=== PATIENT | female | born 1975 | race Caucasian/White ===

== ENCOUNTER → 2017-02-23 | Outpatient (CLI) | payer BC ==
--- NOTE | 2017-02-23 13:56 | MM ---
Reason for exam: screening (asymptomatic). Last mammogram was performed 2 years ago. Physical Findings: A clinical breast exam by your physician is recommended on an annual basis and results should be correlated with mammographic findings. MG 3D Screening Mammo W/Cad Bilateral CC and MLO view(s) were taken. Prior study comparison: February 26, 2015, mammogram, performed at [facility]. August 28, 2011, mammogram, performed at [facility]. The breast tissue is extremely dense which could obscure a lesion on mammography. There is no discrete abnormality. ASSESSMENT: Negative, BI-RAD 1 RECOMMENDATION: Routine screening mammogram of both breasts in 1 year.
== END | disposition home or self-care (01) ==
LOC: RADMAMWWP 08:27
PROVIDERS: ATTEND Family Medicine
DX: Z12.31 Encounter for screening mammogram for malignant neoplasm of breast (principal)
CPT/HCPCS: 77063; G0202

== ENCOUNTER → 2018-09-28 | Outpatient (CLI) | payer BC ==
--- NOTE | 2018-09-29 11:25 | MM ---
Reason for exam: screening (asymptomatic). Last mammogram was performed 1 year and 7 months ago. Physical Findings: A clinical breast exam by your physician is recommended on an annual basis and results should be correlated with mammographic findings. MG 3D Screening Mammo W/Cad Bilateral CC and MLO view(s) were taken. Prior study comparison: February 23, 2017, bilateral MG 3d screening mammo w/cad. February 26, 2015, mammogram, performed at [facility]. The breast tissue is heterogeneously dense. This may lower the sensitivity of mammography. No significant changes when compared with prior studies. ASSESSMENT: Negative, BI-RAD 1 RECOMMENDATION: Routine screening mammogram of both breasts in 1 year. Patient should continue monthly self breast exams. A negative report should not preclude additional follow up of suspicious palpable abnormalities.
== END | disposition home or self-care (01) ==
LOC: RADMAMWWP 16:19
PROVIDERS: ATTEND Family Medicine
DX: Z12.31 Encounter for screening mammogram for malignant neoplasm of breast (principal)
CPT/HCPCS: 77063; 77067

== ENCOUNTER → 2020-08-27 | Outpatient (CLI) | payer BC ==
--- NOTE | 2020-08-29 08:33 | MM ---
Reason for exam: screening (asymptomatic). Last mammogram was performed 1 year and 11 months ago. Physical Findings: A clinical breast exam by your physician is recommended on an annual basis and results should be correlated with mammographic findings. MG 3D Screening Mammo W/Cad Bilateral CC and MLO view(s) were taken. Prior study comparison: September 28, 2018, bilateral MG 3d screening mammo w/cad. February 23, 2017, bilateral MG 3d screening mammo w/cad. The breast tissue is extremely dense which could obscure a lesion on mammography. No significant changes when compared with prior studies. ASSESSMENT: Benign, BI-RAD 2 RECOMMENDATION: Routine screening mammogram of both breasts in 1 year.
== END | disposition home or self-care (01) ==
LOC: RADMAMWWP 13:41
PROVIDERS: ATTEND Family Medicine
DX: Z12.31 Encounter for screening mammogram for malignant neoplasm of breast (principal)
CPT/HCPCS: 77063; 77067

== ENCOUNTER → 2021-12-31 | Outpatient (CLI) | payer BC ==
--- NOTE | 2022-01-01 14:45 | MM ---
Reason for Exam: Screening (asymptomatic). Last mammogram was performed 1 year(s) and 4 month(s) ago. Patient History: Menarche at age 13. First Full-Term at age 28. Risk Values: Luda 5 year model risk: 0.9%. NCI Lifetime model risk: 10.5%. Prior Study Comparison: 02/23/2017 Bilateral Screening Mammogram, [facility]. 09/28/2018 Bilateral Screening Mammogram, [facility]. 08/27/2020 Bilateral Screening Mammogram, [facility]. Tissue Density: The breast tissue is heterogeneously dense. This may lower the sensitivity of mammography. Findings: Analyzed By CAD. No suspicious groups of microcalcifications, spiculated or lobular masses, architectural distortion or other secondary signs of malignancy are mammographically apparent. Overall Assessment: Negative, BI-RAD 1 Management: Screening Mammogram of both breasts in 1 year. A negative mammogram report should not preclude additional follow up of suspicious palpable abnormalities. Patient should continue monthly self breast exam. A clinical breast exam by your physician is recommended on an annual basis and results should be correlated with mammographic findings. Electronically signed and approved by: Saran Bishop D.O. Radiologis
== END | disposition home or self-care (01) ==
LOC: RADMAMWWP 07:20
PROVIDERS: ATTEND Family Medicine
DX: Z12.31 Encounter for screening mammogram for malignant neoplasm of breast (principal)
CPT/HCPCS: 77063; 77067

== ENCOUNTER → 2022-09-08 | Outpatient (CLI) | payer BC ==
--- NOTE | 2022-09-08 14:32 | CT ---
EXAMINATION TYPE: CT abdomen wo con CT DLP: 180.1 mGycm, Automated exposure control for dose reduction was used. DATE OF EXAM: 09/08/2022 2:23 PM COMPARISON: None CLINICAL INDICATION:Female, 46 years old with history of R10.13 epigastric pain; epigastric pain TECHNIQUE: Standard CT of the abdomen without IV or oral contrast. Lack of IV or oral contrast limi ts evaluation of solid and hollow organ viscera. Coronal and sagittal reformats were performed. FINDINGS: LOWER CHEST: Unremarkable ABDOMEN LIVER: Subcentimeter hypodensity within the right hepatic lobe which is too small to characterize but likely represents a cyst. GALLBLADDER AND BILE DUCTS: Unremarkable. PANCREAS: Unremarkable noncontrast appearance. SPLEEN: Unremarkable noncontrast appearance. ADRENAL GLANDS: Unremarkable noncontrast appearance. KIDNEYS AND URETERS: No evidence of hydronephrosis or renal calculus. STOMACH AND BOWEL: Stomach and duodenum are unremarkable. Enteric contrast reaches the mid small elvia l. No focal wall thickening or surrounding inflammatory changes. No evidence of bowel obstruction. PERITONEUM: No evidence of pneumoperitoneum or free fluid. VASCULATURE: No evidence of aortic aneurysm. MUSCULOSKELETAL: No acute osseous abnormalities. Levocurvature of the lumbar spine. Grade 1 anterolis thesis of L4 on L5 without pars defects. Multilevel facet arthropathy. No aggressive osseous lesion. Degenerative disc disease at L5-S1. LYMPH NODES: No gross evidence for lymphadenopathy. SOFT TISSUE/ABDOMINAL WALL: Small fat filled umbilical hernia. IMPRESSION: 1. No acute abdominal process. 2. Grade 1 anterolisthesis of L4 on L5 without pars defects.
== END | disposition home or self-care (01) ==
LOC: RADCTMAIN 13:40
PROVIDERS: ATTEND Family Medicine
DX: M43.16 Spondylolisthesis, lumbar region (principal); R10.13 Epigastric pain; R19.7 Diarrhea, unspecified
CPT/HCPCS: 74150

== ENCOUNTER → 2023-03-10 | Outpatient (CLI) | payer BC ==
--- NOTE | 2023-03-10 08:29 | MM ---
Reason for Exam: Screening (asymptomatic). Last mammogram was performed 1 year(s) and 2 month(s) ago. Patient History: Menarche at age 13. First Full-Term at age 28. Patient has history of breast feeding. Last menstrual period: 12/09/2012 Risk Values: Luda 5 year model risk: 1.0%. NCI Lifetime model risk: 10.3%. Prior Study Comparison: 09/28/2018 Bilateral Screening Mammogram, [facility]. 08/27/2020 Bilateral Screening Mammogram, [facility]. 12/31/2021 Bilateral MG 3D screening mammo w/cad, [facility]. Tissue Density: The breast tissue is extremely dense which could obscure a lesion on mammography. Findings: Analyzed By CAD. Pattern appears symmetrical. Multiple new punctate heterogenous calcifications are in the upper outer quadrant right breast. This is an interval change. Additional workup with magnification views are recommended.Pattern appears symmetrical. There is an ill-defined area of increased density within the medial left cranial caudal view. This has indistinct borders. Additional workup with a compression view is recommended. Multiple new punctate heterogenous calcifications are in the upper outer quadrant right breast. This is an interval change. Additional workup with magnification views are recommended. Overall Assessment: Incomplete: need additional imaging evaluation, BI-RAD 0 Management: Diagnostic Mammogram of both breasts. A negative mammogram report should not preclude additional follow up of suspicious palpable abnormalities. Patient should continue monthly self breast exam. A clinical breast exam by your physician is recommended on an annual basis and results should be correlated with mammographic findings. Electronically signed and approved by: Saran Bishop D.O. Radiologis
--- NOTE | 2023-03-10 08:42 | MM ---
Reason for Exam: Additional evaluation requested from abnormal screening. Last mammogram was performed 1 year(s) and 2 month(s) ago. Indicated Problems: Bloody discharge of the right side. Patient History: Menarche at age 13. First Full-Term at age 28. Patient has history of breast feeding. Risk Values: Luda 5 year model risk: 1.0%. NCI Lifetime model risk: 10.3%. Prior Study Comparison: 08/27/2020 Bilateral Screening Mammogram, [facility]. 12/31/2021 Bilateral MG 3D screening mammo w/cad, [facility]. Tissue Density: The breast tissue is extremely dense which could obscure a lesion on mammography. Findings: Analyzed By CAD. Multiple persistent heterogenous punctate calcifications are in the upper outer quadrant right breast. This is an interval change. These are suggestive of malignancy. Sampling is recommended. Under compression the area of increased density within the inferior medial left breast disperses on compression. Persistent abnormality on the rolled views is not evident. Precautionary follow up left breast mammogram in 6 months is recommended. Overall Assessment: Highly suggestive of malignancy, BI-RAD 5 Management: Stereotactic Core Biopsy of the right breast. Surgical Consultation of the right breast. A negative mammogram report should not preclude additional follow up of suspicious palpable abnormalities. Patient should continue monthly self breast exam. A clinical breast exam by your physician is recommended on an annual basis and results should be correlated with mammographic findings. Electronically signed and approved by: Saran Bishop D.O. Radiologis
== END | disposition home or self-care (01) ==
LOC: RADMAMWWP 07:41
PROVIDERS: ATTEND Family Medicine
DX: Z12.31 Encounter for screening mammogram for malignant neoplasm of breast (principal); R92.1 Mammographic calcification found on diagnostic imaging of breast; R92.333 Mammographic heterogeneous density, bilateral breasts
CPT/HCPCS: 77062; 77063; 77066; 77067

== ENCOUNTER → 2023-03-23 | Day surgery (SDC) | payer BC ==
--- NOTE | 2023-03-26 11:22 | MM ---
Risk Values: Luda 5 year model risk: 1.0%. NCI Lifetime model risk: 10.3%. Prior Study Comparison: 12/31/2021 Bilateral MG 3D screening mammo w/cad, [facility]. 03/10/2023 Bilateral MG 3D work up w/cad JAIMEE, H. 03/10/2023 Bilateral MG 3D screening mammo w/cad, [facility]. Pathology Description: Approach: CC FA Needle Type: Eviva Cores: 12 Skin Nicks: 1 Gauge: 9 pt almost passed out The procedure of stereotactic guided core biopsy was explained to the patient. Benefits, alternatives, and risks were discussed. An informed consent was then obtained. The shortness pathway for anterior margin of the calcified lesions in the posterior right breast. Shortness pathway was superior approach. A vacuum assisted biopsy gun was used to obtain multiple core samples. The patient tolerated the procedure well without any immediate complication. The patient was kept in the radiology department for short stay after the procedure and then discharged home in stable condition. Targeted calcifications were identified in specimen mammogram. Patient had an episode of vasovagal syncope and was urgently taken off the biopsy chair. Post biopsy mammogram shows the clip to appear in satisfactory position relative to the targeted area of concern on the preprocedure images. Impression: SUCCESSFUL, COMPLICATED STEREOTACTIC GUIDED CORE BIOPSY OF AREA OF CONCERN IN THE POSTERIOR LATERAL RIGHT BREAST. FEW SCANT CALCIFICATIONS ARE PRESENT. PATIENT HAD AN EPISODE OF VASOVAGAL SYNCOPE AND WAS URGENTLY TAKEN OFF THE BIOPSY CHAIR. Pathology Description: Approach: CC FA Needle Type: Eviva Cores: 12 Skin Nicks: 1 Gauge: 9 pt almost passed out The procedure of stereotactic guided core biopsy was explained to the patient. Benefits, alternatives, and risks were discussed. An informed consent was then obtained. The shortness pathway for anterior margin of the calcified lesions in the right breast. Shortness pathway was superior approach. A vacuum assisted biopsy gun was used to obtain multiple core samples. The patient tolerated the procedure well without any immediate complication. The patient was kept in the radiology department for short stay after the procedure and then discharged home in stable condition. Minimal calcifications are identified in specimen mammogram. Patient had an episode of vasovagal syncope and was urgently taken off the biopsy chair. Post biopsy mammogram shows the clip to appear in satisfactory position relative to the targeted area of concern on the preprocedure images. Impression: Minimally COMPLICATED STEREOTACTIC GUIDED CORE BIOPSY OF AREA OF CONCERN IN THE ANTERIOR RIGHT BREAST. FEW SCANT CALCIFICATIONS ARE PRESENT. Patient had an episode of vasovagal syncope and was urgently taken off the biopsy chair. No second attempt was attempted at this location. The procedure of stereotactic guided core biopsy was explained to the patient. Benefits, alternatives, and risks were discussed. An informed consent was then obtained. The shortness pathway for anterior margin of the calcified lesions in the right breast. Shortness pathway was superior approach. A vacuum assisted biopsy gun was used to obtain multiple core samples. The patient tolerated the procedure well without any immediate complication. The patient was kept in the radiology department for short stay after the procedure and then discharged home in stable condition. Minimal calcifications are identified in specimen mammogram. Patient had an episode of vasovagal syncope and was urgently taken off the biopsy chair. Post biopsy mammogram shows the clip to appear in satisfactory position relative to the targeted area of concern on the preprocedure images. Impression: Minimally COMPLICATED STEREOTACTIC GUIDED CORE BIOPSY OF AREA OF CONCERN IN THE ANTERIOR LATERAL RIGHT BREAST. FEW SCANT CALCIFICATIONS ARE PRESENT. Patient had an episode of vasovagal syncope and was urgently taken off the biopsy chair. No second attempt was attempted at this location. The procedure of stereotactic guided core biopsy was explained to the patient. Benefits, alternatives, and risks were discussed. An informed consent was then obtained. The shortness pathway for anterior margin of the calcified lesions in the right breast. Shortness pathway was superior approach. A vacuum assisted biopsy gun was used to obtain multiple core samples. Minimal calcifications are identified in specimen mammogram. Patient had an episode of vasovagal syncope and was urgently taken off the biopsy chair. Post biopsy mammogram shows the clip to appear in satisfactory position relative to the targeted area of concern on the preprocedure images. No second attempt was taken secondary to the syncope. Attention was then taken to the posterior lateral right breast to the posterior margin of the suspicious calcifications. Shortness pathway was superior approach. A vacuum assisted biopsy gun was used to obtain multiple core samples. Patient had an episode of vasovagal syncope and was urgently taken off the biopsy chair. Targeted calcifications were identified in specimen mammogram. The patient was kept in the radiology department for short stay after the procedure and then discharged home in stable condition. Post biopsy mammogram shows the clip to appear in satisfactory position relative to the targeted area of concern on the preprocedure images. Impression: MINIMALLY COMPLICATED STEREOTACTIC GUIDED CORE BIOPSY OF AREA OF CONCERN IN THE LATERAL RIGHT BREAST. FEW SCANT CALCIFICATIONS ARE PRESENT ON INITIAL ANTERIOR BIOPSY WHILE THE POSTERIOR BIOPSY DEMONSTRATED SATISFACTORY CALCIFICATIONS. PATIENT HAD AN EPISODE OF VASOVAGAL SYNCOPE ON BOTH THE ANTERIOR POSTERIOR BIOPSIES AND WAS URGENTLY TAKEN OFF THE BIOPSY CHAIR AFTER OBTAINING SAMPLES. NO SECOND ATTEMPT WAS ATTEMPTED AT THE ANTERIOR LOCATION. POSTERIOR LOCATION APPEARS SATISFACTORY. Pathology Results: Result: Malignant, Ductal carcinoma in situ, comedo type. A. 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 B. 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 Overall Assessment: Malignant Management: Surgical Consultation of the right breast. Electronically signed and approved by: Karthik Engle DO
== END | disposition home or self-care (01) ==
LOC: RADMAMWWP 07:37
PROVIDERS: ATTEND Surgery
DX: D05.11 Intraductal carcinoma in situ of right breast (principal)
CPT/HCPCS: 88305; 88342; 88341; 19081; 19082; A4648

== ENCOUNTER 2023-04-22 10:31 | Day surgery (SDC) | payer BC ==
[~2023-04-22 10:31] MED LIST: LACTATED RINGERS 1,000 ML IV SCH; LIDOCAINE 1% (10MG/ML) FOR IV START INTRADERMA PRN
[2023-04-22 12:07] VITALS: TEMP 97.9
[2023-04-22] MEDS ORDERED: PROPOFOL 10 MG/ML 20 ML VIAL IV ONE (12:24)
--- NOTE | 2023-04-22 12:37 | P.PCN ---
Date of Procedure: 04/22/23 Procedure(s) Performed: BRIEF HISTORY: Patient is a 47-year-old pleasant white female scheduled for an elective colonoscopy as a part of evaluation of chronic diarrhea for the last several years duration. PROCEDURE PERFORMED: Colonoscopy with random biopsy. PREOPERATIVE DIAGNOSIS: Chronic intermittent diarrhea. IV sedation per Anesthesia. PROCEDURE: After informed consent was obtained, the patient, was brought into the endoscopy unit. IV sedation was administered by Anesthesia under continuous monitoring. Digital rectal examination was normal. Initially the Olympus CF-160 flexible video colonoscope was then inserted in the rectum, gradually advanced into the cecum without any difficulty. Careful examination was performed as the scope was gradually being withdrawn. Ileocecal valve and the appendiceal orifice were visualized and appeared normal. Prep was excellent. Mucosa of the cecum, ascending colon, transverse colon, descending colon, sigmoid colon, and rectum appeared normal. Random biopsies were done from ascending and descending colon to rule out microscopic/collagenous colitis. Retroflexion was performed in the rectum and small internal hemorrhoids were seen. The patient tolerated the procedure well. IMPRESSION: Normal-appearing colon from rectum to cecum with no evidence of colitis or colorectal neoplasia . Small internal hemorrhoids. RECOMMENDATIONS: Findings of this examination were discussed with the patient as well as a family. She was advised to follow with the biopsy results and she'll be seen in office in 3-4 weeks.. Recommended repeat screening colonoscopy in 10 years
[2023-04-22 13:09] VITALS: BP 119/76; PULSE 71; RESP 16
== END 2023-04-22 13:15 | disposition home or self-care (01) ==
LOC: ORWHC2ENDO 10:31
PROVIDERS: ATTEND Internal Medicine Gastroenterology
DX: K64.8 Other hemorrhoids (principal); M79.7 Fibromyalgia; F41.9 Anxiety disorder, unspecified; Z85.3 Personal history of malignant neoplasm of breast; Z79.899 Other long term (current) drug therapy; Z79.1 Long term (current) use of non-steroidal anti-inflammatories (NSAID)
CPT/HCPCS: 81025; 88305; 45380; J2704

== ENCOUNTER → 2023-06-09 | Outpatient (CLI) | payer BC ==
--- NOTE | 2023-06-09 17:20 | CA ---
Transthoracic Echo Report Name: Marguerite Cee Age: 47 Gender: F : 1975 Exam Date: 06/09/2023 11:20 Exam Location: [facility] Ht (in): 67 Wt (lb): 145 Ordering Physician: Lon Lockhart MD Attending/Referring Phys: Client Services Manager Nettie Robertson [facility] Procedure CPT: Indications: Z01.818 Pre-chemo Cardiac Hx: Technical Quality: Fair Contrast 1: Total Dose (mL): Contrast 2: Total Dose (mL): MEASUREMENTS (Male / Female) Normal Values 2D ECHO LV Diastolic Diameter PLAX 3.6 cm 4.2 - 5.9 / 3.9 - 5.3 cm LV Systolic Diameter PLAX 2.7 cm IVS Diastolic Thickness 0.8 cm 0.6 - 1.0 / 0.6 - 0.9 cm LVPW Diastolic Thickness 0.9 cm 0.6 - 1.0 / 0.6 - 0.9 cm LV Relative Wall Thickness 0.5 LVOT Diameter 2.0 cm LV Diastolic Volume MOD BP 61.6 cm??? 67 - 155 / 56 - 104 cm??? LV Systolic Volume MOD BP 27.3 cm??? 22 - 58 / 19 - 49 cm??? LV Ejection Fraction MOD BP 55.7 % >= 55 % LV Cardiac Index MOD BP 1515.1 cm???/min???m??? LV Diastolic Volume MOD 4C 67.5 cm??? LV Systolic Volume MOD 4C 30.0 cm??? LV Ejection Fraction MOD 4C 55.6 % LV Cardiac Index MOD 4C 1658.6 cm???/min???m??? LV Diastolic Length 4C 9.0 cm LV Systolic Length 4C 7.5 cm LV Diastolic Volume MOD 2C 53.2 cm??? LV Systolic Volume MOD 2C 24.9 cm??? LV Ejection Fraction MOD 2C 53.1 % LV Cardiac Index MOD 2C 1249.7 cm???/min???m??? LV Diastolic Length 2C 8.5 cm LV Systolic Length 2C 7.5 cm M-MODE Aortic Root Diameter MM 2.2 cm LA Systolic Diameter MM 2.8 cm LA Ao Ratio MM 1.3 AV Cusp Separation MM 1.8 cm DOPPLER AV Peak Velocity 118.3 cm/s AV Peak Gradient 5.6 mmHg AV Mean Velocity 91.6 cm/s AV Mean Gradient 3.6 mmHg AV Velocity Time Integral 25.4 cm LVOT Peak Velocity 89.3 cm/s LVOT Peak Gradient 3.2 mmHg LVOT Velocity Time Integral 19.3 cm LVOT Stroke Volume 59.8 cm??? LVOT Stroke Volume Index 33.9 ml/m??? LVOT Cardiac Index 2638.9 cm???/min???m??? AV Area Cont Eq vti 2.4 cm??? AV Area Cont Eq pk 2.3 cm??? Mitral E Point Velocity 68.3 cm/s Mitral A Point Velocity 64.7 cm/s Mitral E to A Ratio 1.1 MV Deceleration Time 181.5 ms LV E' Lateral Velocity 14.9 cm/s Mitral E to LV E' Lateral Ratio 4.6 LV E' Septal Velocity 12.1 cm/s Mitral E to LV E' Septal Ratio 5.6 TR Peak Velocity 198.2 cm/s TR Peak Gradient 15.7 mmHg Right Atrial Pressure 15.0 mmHg Pulmonary Artery Systolic Pressu 30.7 mmHg Right Ventricular Systolic Press 30.7 mmHg FINDINGS Left Ventricle Left ventricular wall thickness normal. Left ventricular cavity size normal. Low normal left ventricular systolic function with no obvious regional wall motion abnormalities. Left ventricular ejection fraction is estimated at 50- 55%. Right Ventricle Normal right ventricular size. Mild pulmonary hypertension. Right Atrium Normal right atrial size. Left Atrium Normal left atrial size. Mitral Valve Mitral valve thickened. No mitral regurgitation. Aortic Valve Aortic valve not well visualized. No aortic valve stenosis or regurgitation. Tricuspid Valve Structurally normal tricuspid valve. Trace tricuspid regurgitation. Pulmonic Valve Pulmonic valve not well visualized. Pericardium No pericardial effusion. Aorta Normal size aortic root. CONCLUSIONS Normal LV size and systolic function ejection fraction 55% Previewed by: Dr. Denys Wolff MD (Electronically Signed) Final Date: 09 June 2023 17:19
== END | disposition home or self-care (01) ==
LOC: RADECHMAIN 10:48
PROVIDERS: ATTEND Internal Medicine Hematology & Oncology
DX: Z01.818 Encounter for other preprocedural examination (principal)
CPT/HCPCS: 93306

== ENCOUNTER 2023-06-19 07:26 | Day surgery (SDC) | payer BC ==
[2023-06-09 11:51] VITALS: BMI 22.7
[~2023-06-19 07:26] MED LIST changes: +ACETAMINOPHEN TAB 500 MG TAB PO PRN; +HEPARIN SODIUM,PORCINE 5,000 UNIT/ML 1 ML VIAL SQ PRN; +HYDROmorphone 0.5 MG/0.5 ML SYRINGE IVP PRN; +MIDAZOLAM 2 MG/2 ML VIAL IV PRN; +Pre Op ABX Message 1 EACH MISC MISCELLANE ONE
[2023-06-19] MEDS ORDERED: METOCLOPRAMIDE 5 MG/ML 2 ML VIAL ONE (08:27)
[2023-06-19] MEDS ORDERED: ONDANSETRON 4 MG/2 ML VIAL ONE (08:27)
[2023-06-19] MEDS ORDERED: DEXAMETHASONE SOD PHOSPHATE 4 MG/ML 1 ML VIAL IVP ONE (08:30)
[2023-06-19 08:40] VITALS: RESP 16
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
[2023-06-19] MEDS ORDERED: ceFAZolin 1,000 MG VIAL ONE (08:52)
[2023-06-19] MEDS ORDERED: MIDAZOLAM 2 MG/2 ML VIAL ONE (08:52)
[2023-06-19] MEDS ORDERED: PROPOFOL 10 MG/ML 20 ML VIAL IV ONE (08:52)
[2023-06-19] MEDS ORDERED: LIDOCAINE 1% INJ 10MG/ML (20 ML MDV) ONE (08:52)
[2023-06-19] MEDS ORDERED: SODIUM CHLORIDE 0.9% 100 ML BAG ONE (08:52)
[2023-06-19] MEDS ORDERED: PHENYLEPHRINE 10 MG/ML VIAL ONE (08:52)
[2023-06-19] MEDS ORDERED: fentaNYL (PF) 50 MCG/ML 2 ML AMP ONE (08:52)
[2023-06-19] MEDS ORDERED: HEPARIN SODIUM,PORCINE 100 UNIT/ML 5 ML VIAL IV ONE ×2 (08:56→09:37)
[2023-06-19] MEDS ORDERED: LIDOCAINE (PF) 10 MG/ML 2 ML VIAL SQ ONE ×2 (08:57→09:37)
[2023-06-19] MEDS ORDERED: SODIUM CHLORIDE 0.9% 100 ML with ceFAZolin 2,000 MG IV ONE ×2 (09:18)
[2023-06-19] MEDS ORDERED: ACETAMINOPHEN TAB 325 MG TAB PO PRN (09:55)
[2023-06-19] MEDS ORDERED: NALOXONE 0.4 MG/ML 1 ML VIAL IV PRN (09:55)
--- NOTE | 2023-06-19 09:57 | P.OP ---
Date of Procedure: 06/19/23 Procedure(s) Performed: PREOPERATIVE DIAGNOSIS: Right breast cancer POSTOPERATIVE DIAGNOSIS: Same PROCEDURE: Port-A-Cath placement with fluoroscopic and ultrasound guidance SURGEON: Elly EBL: Minimal ANESTHESIA: General COMPLICATIONS: None OPERATIVE PROCEDURE: Patient was brought and placed on the operative table in the supine position. The patient was placed under general anesthesia at that time. The chest and neck were prepped and draped in usual sterile fashion. The ultrasound probe was used to identify the location of the left internal jugular vein. The skin was localized with lidocaine. The Seldinger needle was advanced into the IJ under ultrasound guidance. The wire was advanced through the needle under fluoroscopic guidance into the superior vena cava. A port pocket was created in the left infraclavicular location. The catheter was tunneled from the wire entrance site to the port pocket. The port was then connected to the catheter. The dilator introducer was threaded over the guidewire. The guidewire and dilator were then removed. The catheter was advanced through the introducer and introducer was then removed. The tip was seen to be in the right atrial junction via fluoroscopy. A picture of the radiograph showing the tip of the catheter was taken. Port was flushed with both saline and a Hep-Lock solution. There was good flow both in and out of the port. The port was sutured in underlying tissues using 3-0 silk sutures. The subcutaneous tissues were reapproximated using 3-0 Vicryl sutures and the skin at both locations using 4-0 Monocryl sutures. Skin glue and sterile dressings then applied. DISPOSITION: Stable to recovery room
[2023-06-19 10:27] VITALS: TEMP 97.5
--- NOTE | 2023-06-19 11:05 | XR ---
EXAMINATION TYPE: XR chest 1V confirm line [facility] DATE OF EXAM: 06/19/2023 10:56 AM CLINICAL INDICATION:Female, 47 years old with history of Check Line; COMPARISON: Chest radiographs from TECHNIQUE: XR chest 1V confirm line [facility] Frontal view of the chest. FINDINGS: Lungs/Pleura: There is no evidence of pleural effusion, focal consolidation, or pneumothorax. Pulmonary vascularity: Unremarkable. Heart/mediastinum: Cardiomediastinal silhouette is unremarkable. Musculoskeletal: No acute osseous pathology. Other findings: None Lines/Tubes: [id number]-h-[id number] projecting over the left hemithorax with distal tip at the cavoatrial junction. IMPRESSION: No acute cardiopulmonary disease/process.
[2023-06-19 11:47] VITALS: BP 121/78; PULSE 78
--- NOTE | 2023-06-19 12:17 | FL ---
EXAMINATION TYPE: FL guided central line placement DATE OF EXAM: 06/19/2023 FLUOROSCOPY Fluoroscopy time of 10 seconds was used during Port-A-Cath placement. 1 image/s document/s parish dial. DAP: .2315 Gycm2
== END 2023-06-19 12:02 | disposition home or self-care (01) ==
LOC: OR 07:26
PROVIDERS: ATTEND Surgery
DX: C50.911 Malignant neoplasm of unspecified site of right female breast (principal); F41.9 Anxiety disorder, unspecified; K58.9 Irritable bowel syndrome, unspecified; Z90.13 Acquired absence of bilateral breasts and nipples; Z85.3 Personal history of malignant neoplasm of breast; Z87.891 Personal history of nicotine dependence; Z98.890 Other specified postprocedural states; Z79.899 Other long term (current) drug therapy; Z91.048 Other nonmedicinal substance allergy status; Z91.011 Allergy to milk products
CPT/HCPCS: 36561; 81025; 77001; C1788; J2250; J2001 ×2; J1644; J1642; J1100; J2765; J2405; J0690; J3010; J2704; J2371

== ENCOUNTER → 2024-10-31 | Day surgery (SDC) | payer BC ==
[~2024-10-31] MED LIST changes: -ACETAMINOPHEN TAB 500 MG TAB PO PRN; -HEPARIN SODIUM,PORCINE 5,000 UNIT/ML 1 ML VIAL SQ PRN; -HYDROmorphone 0.5 MG/0.5 ML SYRINGE IVP PRN; +LIDOCAINE 1% INJ 10MG/ML (20 ML MDV) ONE; -MIDAZOLAM 2 MG/2 ML VIAL IV PRN; +ONDANSETRON 4 MG/2 ML VIAL IVP PRN; +ONDANSETRON 4 MG/2 ML VIAL ONE; +PROPOFOL 10 MG/ML 20 ML VIAL IV ONE; -Pre Op ABX Message 1 EACH MISC MISCELLANE ONE; +fentaNYL (PF) 50 MCG/ML 2 ML AMP IV PRN
[2024-10-31 07:18] VITALS: RESP 16; TEMP 97.6
[2024-10-31] MEDS: LACTATED RINGERS 1,000 ML IV ONE (07:18)
[2024-10-31 08:06] LABS: Basophils # (A) 0.02 10*3/uL (0.00-0.10); Basophils % (A) 0.5 %; HCT 40.9 % (37.2-46.3); HGB 13.7 g/dL (12.0-15.0); Lymphocytes # (A) 1.12 10*3/uL (0.90-5.00); Lymphocytes % (A) 30.2 %; MCH 34.3 pg (27.0-32.0); MCHC 33.5 g/dL (32.0-37.0); MCV 102.3 fL (80.0-97.0); Monocytes # (A) 0.46 10*3/uL (0.20-1.00); Monocytes % (A) 12.4 %; Neutrophils # (A) 2.11 10*3/uL (1.80-7.70); Neutrophils % (A) 56.9 %; Platelet Count 179 10*3/uL (140-440); WBC 3.71 10*3/uL (4.50-10.00)
[2024-10-31 08:18] VITALS: PULSE 69
[2024-10-31 08:35] VITALS: BP 105/64
--- NOTE | 2024-10-31 08:56 | OP ---
OPERATIVE REPORT DATE OF SERVICE : 10/31/2024 PROCEDURE: Bone marrow aspirate and biopsy. INDICATION: Persistent microcytic anemia. DESCRIPTION OF PROCEDURE: The patient with history of breast cancer treated with adjuvant chemotherapy and radiation therapy. After obtaining consent from the patient, the procedure was performed in the endoscopy suite under general sedation performed by Anesthesia Team. The patient was put in the left lateral decubital position. The right posterior superior iliac crest was localized, skin was prepped with ChloraPrep, all sterile procedures were followed. A 1 mL of 2% xylocaine was used for local anesthetic. Jamshidi needle was inserted about 20 mL aspirate and 1.5 cm core biopsy was obtained without any difficulties. Pressure applied afterwards. There was negligible blood loss. The patient tolerated procedure very well without any immediate complications. MMODL / IJN: [id number] /
[2024-10-31 18:54] LABS: Reticulocyte % 1.51 % (0.10-1.80)
== END ==
LOC: OR 07:02
PROVIDERS: ATTEND Internal Medicine Hematology & Oncology
DX: D50.9 Iron deficiency anemia, unspecified (principal); Z85.3 Personal history of malignant neoplasm of breast
CPT/HCPCS: 85025; 85045; 38222; J2405; J2003; J2704